=== PATIENT | female | born 1990 | race African-American/Black ===

== ENCOUNTER 2018-10-12 18:00 | Emergency (ER) | payer MEDICAID ==
[~2018-10-12] VITALS: Ht 154.9 cm; Wt 73.0 kg
[2018-10-12] MEDS ORDERED: SODIUM CHLORIDE 0.9% 1,000 ML IV ONE (18:30)
[2018-10-12] MEDS ORDERED: ACETAMINOPHEN 325MG TABLET PO ONE (18:30)
[2018-10-12] MEDS ORDERED: ONDANSETRON HCL 4MG/2ML INJ IV ONE (18:30)
[2018-10-12] MEDS ORDERED: FAMOTIDINE 20MG/2ML VIAL IV ONE (18:30)
[2018-10-12 20:42] LABS: CHLORIDE 103 mEq/L (98-107)
[2018-10-12 20:45] LABS: BASOPHILS % 0.3 % (0.0-2.0); EOSINOPHILS % 1.2 % (0.0-5.0); HEMATOCRIT. 34.3 % (36.0-48.0); HEMOGLOBIN. 11.7 g/dL (12.0-16.0); LYMPHOCYTES % 22.5 % (20.0-50.0); MEAN CORPUSCULAR VOLUME 94.1 fL (81.0-99.0); MEAN PLATELET VOLUME 9.5 fl (7.4-10.4); MONOCYTES % 6.7 % (2.0-8.0); NEUTROPHILS % 69.3 % (40.0-76.0); PLATELET 287 x1000/uL (130-400); RED BLOOD CELL COUNT 3.65 mill/uL (4.2-5.4); RED CELL DISTRIBUTION WIDTH 14.1 % (11.6-14.6)
[2018-10-12 21:04] LABS: B-HCG QUANTITATIVE 109702 mIU/mL (<3)
[2018-10-12 21:25] VITALS: BP 126/80
== END 2018-10-12 21:28 | disposition home or self-care (01) ==
LOC: ER 18:00
DX: O26.891 Other specified pregnancy related conditions, first trimester (principal); I10 Essential (primary) hypertension; Z86.73 Personal history of transient ischemic attack (TIA), and cerebral infarction without residual deficits; Z98.890 Other specified postprocedural states; Z3A.12 12 weeks gestation of pregnancy
CPT/HCPCS: 36415; 76805; 76810; 80053; 81025; 84702; 85025; 86850; 86900; 86901; 96361; 96374; 96375; 99284; J2405; J3490; J7030

== ENCOUNTER 2019-02-04 00:08 | Observation (INO) | payer MEDICAID ==
[~2019-02-04] VITALS: Ht 30.5 cm; Wt 0.5 kg
[2019-02-04] MEDS ORDERED: LACTATED RINGERS 1,000 ML IV SCH ×2 (01:08→01:15)
[2019-02-04 01:55] LABS: CLARITY URINE CLEAR (CLEAR); COLOR URINE YELLOW (YELLOW); KETONES URINE NEGATIVE (NEGATIVE); LEUKOCYTE ESTERASE URINE NEGATIVE (NEGATIVE); NITRITE URINE NEGATIVE (NEGATIVE); OCCULT BLOOD URINE NEGATIVE (NEGATIVE); PH URINE 7.5 (4.5-8.0); PROTEIN URINE NEGATIVE (NEGATIVE); SPECIFIC GRAVITY URINE 1.005 (1.005-1.030)
[2019-02-04 03:39] LABS: *AMPHETAMINES SCREEN URINE NEGATIVE (NEGATIVE); *BARBITURATES SCREEN URINE NEGATIVE (NEGATIVE); *BENZODIAZEPINES SCREEN URINE NEGATIVE (NEGATIVE); *COCAINE SCREEN URINE NEGATIVE (NEGATIVE); CANNABINOID URINE SCREEN NEGATIVE (NEGATIVE); METHADONE URINE SCREEN NEGATIVE (NEGATIVE); OPIATES URINE SCREEN NEGATIVE (NEGATIVE); PHENCYCLIDINE URINE SCREEN NEGATIVE (NEGATIVE)
== END 2019-02-04 03:00 | disposition home or self-care (01) ==
LOC: 8 EST LDRP 00:08
PROVIDERS: ADMIT Obstetrics & Gynecology; ATTEND Obstetrics & Gynecology
DX: O62.9 Abnormality of forces of labor, unspecified (principal); O30.003 Twin pregnancy, unspecified number of placenta and unspecified number of amniotic sacs, third trimester; R03.0 Elevated blood-pressure reading, without diagnosis of hypertension; R50.9 Fever, unspecified; Z3A.28 28 weeks gestation of pregnancy
CPT/HCPCS: 80305; 81003; 99281; G0378

== ENCOUNTER 2024-05-15 14:46 | Inpatient (IN) | payer MEDICAID ==
[~2024-05-15] VITALS: Ht 152.4 cm; Wt 60.3 kg
[~2024-05-15 14:46] MED LIST: AMLO10TA80 PO; ASPI-1160 PO; HYDR25TA78 PO; NICO-786 TD
[2024-05-15 15:31] LABS: BASOPHILS % 1.5 % (0.0-2.0); HEMATOCRIT. 38.7 % (36.0-48.0); HEMOGLOBIN. 12.6 g/dL (12.0-16.0); LYMPHOCYTES % 28.5 % (20.0-50.0); MEAN CORPUSCULAR HGB CONC 32.7 g/dL (31.0-37.0); MEAN CORPUSCULAR VOLUME 88.7 fL (81.0-99.0); MEAN PLATELET VOLUME 9.2 fl (7.4-10.4); MONOCYTES % 7.1 % (2.0-8.0); NEUTROPHILS % 61.9 % (40.0-76.0); PLATELET 393 x1000/uL (130-400); RED BLOOD CELL COUNT 4.36 mill/uL (4.2-5.4); RED CELL DISTRIBUTION WIDTH 15.9 % (11.6-14.6); WHITE BLOOD COUNT 5.8 x1000/uL (4.5-11.0)
[2024-05-15 15:33] LABS: CHLORIDE 103 mEq/L (98-107); POTASSIUM 3.6 mEq/L (3.5-5.1); SODIUM 136 mEq/L (136-145)
[2024-05-15 15:34] LABS: CARBON DIOXIDE 24 mEq/L (21-32)
[2024-05-15 15:35] LABS: CALCIUM 8.5 mg/dL (8.7-10.4)
[2024-05-15 15:39] LABS: CREATININE 0.8 mg/dL (0.6-1.0)
[2024-05-15 15:40] LABS: GLUCOSE 110 mg/dL (70-105); UREA NITROGEN BLOOD 12 mg/dL (9-23)
[2024-05-15 15:50] LABS: HCG SCREEN NEGATIVE
[2024-05-15 15:55] LABS: TROPONIN I HIGH SENSITIVITY 52 ng/L (3.0-34)
[2024-05-15 16:30] LABS: CLARITY URINE CLOUDY (CLEAR); COLOR URINE DARK YELLOW (YELLOW); GLUCOSE URINE NEGATIVE (NEGATIVE); KETONES URINE NEGATIVE (NEGATIVE); LEUKOCYTE ESTERASE URINE TRACE (NEGATIVE); NITRITE URINE NEGATIVE (NEGATIVE); OCCULT BLOOD URINE NEGATIVE (NEGATIVE); PH URINE 5.5 (4.5-8.0); PROTEIN URINE 2+ (NEGATIVE); SPECIFIC GRAVITY URINE 1.017 (1.005-1.030)
[2024-05-15 16:56] LABS: INR 1.2; PROTHROMBIN TIME 12.8 sec (9.6-11.0)
[2024-05-15] MEDS: MORPHINE SULFATE 4 MG/ML INJ (FOR IV/IM USE) IV STA (16:57)
[2024-05-15] MEDS: ONDANSETRON HCL 4MG/2ML INJ IV STA (16:57)
[2024-05-15] MEDS: HYDRALAZINE 20MG/ML VIAL IV ONE (16:58)
[2024-05-15 17:15] LABS: BACTERIA URINE 3+; RBC URINE 0-2 /hpf (0-2); SQUAMOUS EPITHELIAL CELL URINE 2+ /lpf (RARE/1+)
[2024-05-15 17:16] LABS: WBC URINE 0-2 /hpf (0-2)
[2024-05-15] MEDS: IOHEXOL-350 100 ML BOTTLE ONE (17:48)
[2024-05-15] MEDS: ASPIRIN 325MG EC TABLET PO ONE (20:12)
[2024-05-15] MEDS ORDERED: KETOROLAC 15MG/ML VIAL IV PRN (21:00)
[2024-05-15] MEDS ORDERED: IPRATROPIUM/ALBUTEROL 0.5-3(2.5)MG/3ML NEB NEB PRN (21:00)
[2024-05-15] MEDS ORDERED: MAGNESIUM/ALUMINUM HYDROXIDE/SIMETHICONE 30ML UDC PO PRN (21:00)
[2024-05-15] MEDS ORDERED: ZOLPIDEM TARTRATE 5MG TABLET PO PRN (21:00)
[2024-05-15] MEDS ORDERED: ONDANSETRON HCL 4MG/2ML INJ IV PRN (21:00)
[2024-05-15] MEDS ORDERED: ACETAMINOPHEN 325MG TABLET PO PRN ×2 (21:00)
[2024-05-15] MEDS ORDERED: GUAIFENESIN 200MG/10ML SUGAR FREE UDC PO PRN (21:00)
[2024-05-15] MEDS ORDERED: DOCUSATE SODIUM 100MG CAPSULE PO PRN (21:00)
[2024-05-15 21:20] LABS: IRON 33 ug/dL (50-170)
[2024-05-15 21:21] LABS: TRIGLYCERIDE 72 mg/dL (0-150)
[2024-05-15 21:22] LABS: LDL CHOLESTEROL 80 mg/dL (5-100)
[2024-05-15 21:23] LABS: CHOLESTEROL 118 mg/dL (<200); HDL CHOLESTEROL 30 mg/dL (>65); TOTAL IRON BINDING CAPACITY 352 ug/dl (250-425)
[2024-05-15 21:26] LABS: THYROID STIMULATING HORMONE 2.56 uIU/mL (0.55-4.78)
[2024-05-15 21:32] LABS: FOLIC ACID (FOLATE) SERUM > 20.00 ng/mL (>5.38)
[2024-05-15 21:33] LABS: VITAMIN B12 SERUM 1096 pg/mL (211-911)
[2024-05-15] MEDS: LOSARTAN 50 MG TABLET PO SCH (21:36)
[2024-05-15] MEDS: NIFEDIPINE XL 60MG TAB PO SCH (21:36)
[2024-05-15] MEDS: FAMOTIDINE 20MG TABLET PO SCH (21:36)
[2024-05-15] MEDS: ENOXAPARIN 80MG/0.8ML SYR SUBCUT SCH (22:17)
[2024-05-15] MEDS: NITROGLYCERIN OINT 1GM/INCH UDPKT TD SCH (22:17)
[2024-05-15] MEDS: CLONIDINE 0.1MG TABLET PO PRN (23:17)
[2024-05-16] MEDS: NITROGLYCERIN 0.4MG TABLET SL SL PRN (00:10)
[2024-05-16 00:55] VITALS: BP 165/115; PULSE 98; RESP 18; TEMP 36.22512; TEMP 36.2512; O2SAT 95
[2024-05-16 02:13] LABS: *AMPHETAMINES SCREEN URINE PRESUMPTIVE POSITIVE (NEGATIVE); *BARBITURATES SCREEN URINE NEGATIVE (NEGATIVE); *BENZODIAZEPINES SCREEN URINE NEGATIVE (NEGATIVE); *COCAINE SCREEN URINE NEGATIVE (NEGATIVE); CANNABINOID URINE SCREEN NEGATIVE (NEGATIVE); ECSTASY MDMA SCREEN URINE NEGATIVE (NEGATIVE); METHADONE URINE SCREEN NEGATIVE (NEGATIVE); OPIATES URINE SCREEN PRESUMPTIVE POSITIVE (NEGATIVE); PHENCYCLIDINE URINE SCREEN NEGATIVE (NEGATIVE)
[2024-05-16] MEDS ORDERED: IOHEXOL-350 100 ML BOTTLE ONE (03:20)
[2024-05-16 04:00] VITALS: BP 125/73; PULSE 98; RESP 20; TEMP 36.61404; O2SAT 92
[2024-05-16 07:10] LABS: BASOPHILS % 1.5 % (0.0-2.0); EOSINOPHILS % 2.3 % (0.0-5.0); LYMPHOCYTES % 31.4 % (20.0-50.0); MEAN CORPUSCULAR HEMOGLOBIN 28.7 pg (28.0-32.0); MEAN CORPUSCULAR HGB CONC 32.4 g/dL (31.0-37.0); MEAN CORPUSCULAR VOLUME 88.5 fL (81.0-99.0); MEAN PLATELET VOLUME 9.4 fl (7.4-10.4); MONOCYTES % 7.6 % (2.0-8.0); NEUTROPHILS % 57.2 % (40.0-76.0); PLATELET 365 x1000/uL (130-400); RED BLOOD CELL COUNT 4.52 mill/uL (4.2-5.4); RED CELL DISTRIBUTION WIDTH 15.8 % (11.6-14.6); WHITE BLOOD COUNT 4.5 x1000/uL (4.5-11.0)
[2024-05-16 07:30] LABS: CHLORIDE 103 mEq/L (98-107); POTASSIUM 3.2 mEq/L (3.5-5.1); SODIUM 136 mEq/L (136-145)
[2024-05-16 07:32] LABS: CREATINE KINASE MB FRACTION 2.1 ng/mL (0.5-3.6)
[2024-05-16 07:33] LABS: CALCIUM 9.1 mg/dL (8.7-10.4); CARBON DIOXIDE 25 mEq/L (21-32)
[2024-05-16 07:38] LABS: CREATININE 0.8 mg/dL (0.6-1.0); GLUCOSE 112 mg/dL (70-105); UREA NITROGEN BLOOD 7 mg/dL (9-23)
[2024-05-16 07:40] LABS: ALANINE AMINOTRANSFERASE 20 IU/L (10-49); ALBUMIN 3.7 g/dL (3.2-4.8); ASPARTATE AMINOTRANSFERASE 30 IU/L (<34); BILIRUBIN TOTAL 2.7 mg/dL (0.1-1.0); PHOSPHORUS 3.2 mg/dL (2.5-4.9); PROTEIN TOTAL 6.1 g/dL (6.0-8.3)
[2024-05-16 08:00] VITALS: BP 122/71; PULSE 103; RESP 18; TEMP 36.16956; O2SAT 94
[2024-05-16] MEDS ORDERED: POTASSIUM CHLORIDE 20 MEQ in DEXT 5% WATER 90 ML IV ONE (08:45)
[2024-05-16] MEDS: ASPIRIN 325MG EC TABLET PO SCH (09:07)
[2024-05-16] MEDS: POTASSIUM CHLORIDE 20MEQ TABLET SR PO NR (09:09)
[2024-05-16] MEDS: KCL 20MEQ/100ML PREMIX 100 ML IV NR (11:04)
[2024-05-16] MEDS: MAGNESIUM 4 G PREMIX 100 ML IV NR (11:05)
[2024-05-16 12:00] VITALS: BP 111/70; PULSE 100; RESP 18; TEMP 36.16956; O2SAT 93
[2024-05-16 14:48] VITALS: BP 111/70; PULSE 100; TEMP 97.1; O2SAT 93
[2024-05-16 16:00] VITALS: BP 106/73; PULSE 100; RESP 18; TEMP 36.33624; O2SAT 97
== END 2024-05-16 18:53 | disposition short-term general hospital (02) | DRG 190 ==
LOC: ER 14:55 → 7WST 19:49 → EDBEDREQ 20:17 → EDBEDREQTM 20:17
PROVIDERS: ADMIT Internal Medicine; ATTEND Internal Medicine
DX: I21.4 Non-ST elevation (NSTEMI) myocardial infarction (principal); E83.51 Hypocalcemia; T43.655A Adverse effect of methamphetamines, initial encounter; I10 Essential (primary) hypertension; I16.1 Hypertensive emergency; F11.10 Opioid abuse, uncomplicated; F15.10 Other stimulant abuse, uncomplicated; F19.10 Other psychoactive substance abuse, uncomplicated; Z86.73 Personal history of transient ischemic attack (TIA), and cerebral infarction without residual deficits; Z91.119 Patient's noncompliance with dietary regimen due to unspecified reason; Y92.89 Other specified places as the place of occurrence of the external cause
CPT/HCPCS: 36415; 71045; 71275; 74174; 80048; 80053; 80061; 80305; 81003; 82550; 82553; 82607; 82746; 82962; 83036; 83540; 83550; 83735; 83880; 84100; 84443; 84484; 84703; 85025; 85379; 93005; 93306; 93923; 93970; 99285; J0360; J1650; J2270; J2405; J3475; J3480; Q9967

== ENCOUNTER 2024-07-08 11:30 | Inpatient (IN) | payer MEDICAID ==
[~2024-07-08] VITALS: Ht 152.4 cm; Wt 60.8 kg
[2024-07-08 12:16] LABS: BASOPHILS % 2.8 % (0.0-2.0); DIFFERENTIAL COMMENT 0; EOSINOPHILS % 0.4 % (0.0-5.0); HEMATOCRIT. 40.1 % (36.0-48.0); HEMOGLOBIN. 12.5 g/dL (12.0-16.0); LYMPHOCYTES % 35.6 % (20.0-50.0); MEAN CORPUSCULAR HEMOGLOBIN 26.5 pg (28.0-32.0); MEAN CORPUSCULAR HGB CONC 31.2 g/dL (31.0-37.0); MEAN CORPUSCULAR VOLUME 85.1 fL (81.0-99.0); MEAN PLATELET VOLUME 9.8 fl (7.4-10.4); MONOCYTES % 8.7 % (2.0-8.0); NEUTROPHILS % 52.5 % (40.0-76.0); PLATELET 319 x1000/uL (130-400); RED BLOOD CELL COUNT 4.72 mill/uL (4.2-5.4); RED CELL DISTRIBUTION WIDTH 17.3 % (11.6-14.6); WHITE BLOOD COUNT 4.2 x1000/uL (4.5-11.0)
[2024-07-08 12:25] LABS: CHLORIDE 107 mEq/L (98-107); POTASSIUM 3.7 mEq/L (3.5-5.1); SODIUM 138 mEq/L (136-145)
[2024-07-08 12:26] LABS: CALCIUM 8.9 mg/dL (8.7-10.4); CARBON DIOXIDE 21 mEq/L (21-32)
[2024-07-08 12:31] LABS: CREATININE 0.9 mg/dL (0.6-1.0); INR 1.3; PROTHROMBIN TIME 14.5 sec (9.6-11.0)
[2024-07-08 12:32] LABS: GLUCOSE 142 mg/dL (70-105); UREA NITROGEN BLOOD 12 mg/dL (9-23)
[2024-07-08 12:36] LABS: ETHANOL BLOOD < 10 mg/dL (<10); TROPONIN I HIGH SENSITIVITY 64 ng/L (3.0-34)
[2024-07-08 12:39] LABS: HCG SCREEN NEGATIVE
[2024-07-08] MEDS: HYDRALAZINE 20MG/ML VIAL IV ONE (14:19)
[2024-07-08] MEDS: CLONIDINE 0.1MG TABLET PO NR (16:45)
[2024-07-08] MEDS: HYDRALAZINE 20MG/ML VIAL IV PRN (18:56)
[2024-07-08 19:56] LABS: CLARITY URINE CLEAR (CLEAR); COLOR URINE YELLOW (YELLOW); GLUCOSE URINE NEGATIVE (NEGATIVE); KETONES URINE NEGATIVE (NEGATIVE); LEUKOCYTE ESTERASE URINE NEGATIVE (NEGATIVE); NITRITE URINE NEGATIVE (NEGATIVE); OCCULT BLOOD URINE NEGATIVE (NEGATIVE); PH URINE 7.5 (4.5-8.0); PROTEIN URINE NEGATIVE (NEGATIVE)
[2024-07-08 20:05] LABS: *AMPHETAMINES SCREEN URINE NEGATIVE (NEGATIVE); *BARBITURATES SCREEN URINE NEGATIVE (NEGATIVE); *BENZODIAZEPINES SCREEN URINE NEGATIVE (NEGATIVE); *COCAINE SCREEN URINE NEGATIVE (NEGATIVE); CANNABINOID URINE SCREEN NEGATIVE (NEGATIVE); ECSTASY MDMA SCREEN URINE NEGATIVE (NEGATIVE); METHADONE URINE SCREEN NEGATIVE (NEGATIVE); OPIATES URINE SCREEN NEGATIVE (NEGATIVE); PHENCYCLIDINE URINE SCREEN NEGATIVE (NEGATIVE)
[2024-07-09] VITALS (14 sets, daily range): BP systolic 103–182; BP diastolic 82–134; PULSE 81–102; RESP 18–24; TEMP 36.6696–36.974; O2SAT 95–100
[2024-07-09] MEDS: AMLODIPINE 10MG TABLET PO SCH (10:59)
[2024-07-09] MEDS: ENOXAPARIN 40MG/0.4ML SYR SUBCUT SCH (11:00)
[2024-07-09] MEDS: ASPIRIN 81MG TABLET PO SCH (11:07)
[2024-07-09] MEDS: LABETALOL HCL 100MG TABLET PO SCH (11:47)
[2024-07-09] MEDS: HYDRALAZINE HCL 50MG TABLET PO SCH (11:49)
[2024-07-09] MEDS: LOSARTAN 100 MG TABLET PO SCH (14:29)
[2024-07-09 14:36] LABS: TROPONIN I HIGH SENSITIVITY 107 ng/L (3.0-34)
[2024-07-09] MEDS: FUROSEMIDE 20MG/2ML VIAL IVP SCH (18:04)
[2024-07-09] MEDS ORDERED: CARVEDILOL 12.5MG TABLET PO SCH (21:00)
[2024-07-09] MEDS: ATORVASTATIN CALCIUM 10MG TABLET PO SCH (21:10)
[2024-07-09] MEDS: CARVEDILOL 12.5MG TABLET PO SCH (21:11)
[2024-07-10] VITALS (12 sets, daily range): BP systolic 91–144; BP diastolic 61–115; PULSE 74–84; RESP 17–24; TEMP 36.114–36.89184; O2SAT 9–99
[2024-07-10] MEDS ORDERED: FUROSEMIDE 20MG TABLET PO SCH (09:00)
[2024-07-10] MEDS: SPIRONOLACTONE 12.5MG TABLET PO SCH (09:18)
[2024-07-10] MEDS ORDERED: SPIR25TA PO (10:52)
[2024-07-10] MEDS ORDERED: LOSA100T33 PO (10:52)
[2024-07-10] MEDS ORDERED: FURO-151 MT (10:52)
[2024-07-10] MEDS ORDERED: COR12 PO (10:52)
[2024-07-10] MEDS ORDERED: POTA-205 MT (10:53)
[2024-07-11] VITALS (8 sets, daily range): BP systolic 115–137; BP diastolic 91–116; PULSE 71–79; RESP 15–25; TEMP 36.22512–36.72516; O2SAT 96–100
[2024-07-11] MEDS: ACETAMINOPHEN 325MG TABLET PO PRN (04:00)
[2024-07-11] MEDS ORDERED: APIX5TAB MT (13:47)
== END 2024-07-11 16:28 | disposition home or self-care (01) | DRG 48 ==
LOC: ER 11:30 → MICUSO 13:56 → EDBEDREQTM 14:16 → EDBEDREQSVC 14:16 → EDBEDREQ 14:16 → 5EST 07-09 09:26
PROVIDERS: ADMIT Internal Medicine; ATTEND Internal Medicine
DX: G90.89 Other disorders of autonomic nervous system (principal); I50.23 Acute on chronic systolic (congestive) heart failure; I82.B12 Acute embolism and thrombosis of left subclavian vein; I11.0 Hypertensive heart disease with heart failure; I16.0 Hypertensive urgency; I82.C12 Acute embolism and thrombosis of left internal jugular vein; I42.0 Dilated cardiomyopathy; Z86.73 Personal history of transient ischemic attack (TIA), and cerebral infarction without residual deficits
CPT/HCPCS: 36415; 70496; 70498; 70551; 71045; 80048; 80305; 80320; 81003; 84484; 84703; 85025; 85379; 93005; 93970; 93971; 99291; C1893; J0360; J1650; J1940; G0480